=== PATIENT | female | born 1940 | race Caucasian/White ===

== ENCOUNTER 2016-06-17 12:03 | Emergency (ER) | payer MEDICARE, BC ==
[~2016-06-17] VITALS: Ht 167.6 cm; Wt 75.0 kg
[2016-06-17 12:05] VITALS: PULSE 100; RESP 16; TEMP 98.1; O2SAT 100
[2016-06-17] MEDS ORDERED: ALPR.25 PO (12:22)
[2016-06-17] MEDS ORDERED: METO25TA6 PO (12:22)
[2016-06-17] MEDS ORDERED: LISI10TA3 PO (12:22)
[2016-06-17 12:27] VITALS: BP 184/76; PULSE 86; RESP 16; O2SAT 99
[2016-06-17] MEDS ORDERED: SODIUM CHLORID 0.9% 500 ML INJ 500 ML IV ONE (12:45)
[2016-06-17] MEDS ORDERED: SODIUM CHLORIDE 0.9% FLUSH 10 ML FLUSH IVF PRN (12:45)
[2016-06-17 12:51] VITALS: RESP 16; O2SAT 99
[2016-06-17 12:52] LABS: AUTOMATED NEUTROPHIL # 4.1 TH/MM3 (1.8-7.7); BASOPHIL # 0.4 TH/MM3 (0-0.2); BASOPHIL % 4.6 % (0.0-2.0); EOSINOPHIL # 0.1 TH/MM3 (0-0.4); EOSINOPHIL % 1.1 % (0.0-4.0); HEMATOCRIT 36.3 % (35.0-46.0); HEMO FLAGS DIFF FINAL; LYMPH % 31.2 % (9.0-44.0); LYMPHOCYTE # 2.4 TH/MM3 (1.0-4.8); MEAN CORPUSCULAR HEMOGLOBIN 31.2 PG (27.0-34.0); MEAN CORPUSCULAR HGB CONC 34.3 % (32.0-36.0); MONO % 8.5 % (0.0-8.0); NEUT % 54.6 % (16.0-70.0); PLATELET COUNT 240 TH/MM3 (150-450); RED BLOOD COUNT 3.99 MIL/MM3 (4.00-5.30); RED CELL DISTRIBUTION WIDTH 12.4 % (11.6-17.2); WHITE BLOOD COUNT 7.6 TH/MM3 (4.0-11.0)
[2016-06-17 12:55] LABS: BLOOD, URINE TRACE (NEG); GLUCOSE,URINE NEG (NEG); KETONE, URINE NEG (NEG); NITRITE,URINE NEG (NEG)
--- NOTE | 2016-06-17 12:57 | PD ---
HPI Chief Complaint: Dizziness Time Seen by Provider: 12:23 Travel History International Travel<30 days: No Contact w/Intl Traveler<30days: No Traveled to known affect area: No History of Present Illness HPI Patient is a 75-year-old female with history of hypertension, anxiety, since the emergency room for evaluation of "shakiness and nausea." Patient reports that over the past 2 weeks, she has not been feeling well, reports that she has been feeling "shaky inside and has been feeling nauseous." Patient reports that she went to her primary care doctor's office on Monday as she thought that she had a urinary tract infection, reports that the pain a urine culture and did not send a UA. Reports that she was not sent home with any antibiotics and patient traveled to [place] for vacation. Patient reports that last night around 11 PM, she felt her "inside of my body jerking" reports "I can't describe it but I had to take a 0.5mg of xanax and then I was able to go to bed. " Patient reports that she woke up at 2:30am with similar symptoms. Reports "I just feel shaky inside and I just needed to be checked." Reports that she has been having back pain and thats why she takes tramadol. Reports "It all started when I got here and slept on this new bed." Denies fever/chills. Denies headache/dizzyness. Denies chest pain/sob. Denies abdominal pain. PFSH Past Medical History Diminished Hearing: No Hypertension: Yes Tetanus Vaccination: Unknown ?: Not Past Surgical History Hysterectomy: Yes Social History Alcohol Use: No Tobacco Use: No Substance Use: No Allergies-Medications (Allergen,Severity, Reaction): Coded Allergies: No Known Allergies (Unverified , 06/17/16) Reported Meds & Prescriptions Reported Meds & Active Scripts Active Macrobid (Nitrofurantoin Monoh/Nitrofur Macro) 100 Mg Cap 100 Mg PO BID 10 Days Reported Xanax (Alprazolam) 0.25 Mg Tab 0.25 Mg PO Q8H PRN Metoprolol Succinate ER 24 HR (Metoprolol Succinate) 25 Mg Tab 12.5 Mg PO DAILY Lisinopril 10 Mg Tab 10 Mg PO DAILY Review of Systems General / Constitutional: No: Fever Eyes: No: Visual changes HENT: No: Headaches Cardiovascular: Positive: Tachycardia, No: Chest Pain or Discomfort Respiratory: No: Shortness of Breath Gastrointestinal: No: Abdominal Pain Genitourinary: No: Dysuria Musculoskeletal: No: Pain Skin: No Rash Neurologic: No: Weakness Psychiatric: No: Depression Endocrine: No: Polydipsia Hematologic/Lymphatic: No: Easy Bruising Physical Exam Narrative GENERAL: NAD, nontoxic SKIN: Focused skin assessment warm/dry. HEAD: Atraumatic. Normocephalic. EYES: Pupils equal and round. No scleral icterus. No injection or drainage. ENT: No nasal bleeding or discharge. Mucous membranes pink and moist. NECK: Trachea midline. No JVD. CARDIOVASCULAR: Regular rate and rhythm. No murmur appreciated. RESPIRATORY: No accessory muscle use. Clear to auscultation. Breath sounds equal bilaterally. GASTROINTESTINAL: Abdomen soft, non-tender, nondistended. Hepatic and splenic margins not palpable. MUSCULOSKELETAL: No obvious deformities. No clubbing. No cyanosis. No edema. NEUROLOGICAL: Awake and alert. No obvious cranial nerve deficits. Motor grossly within normal limits. Normal speech. PSYCHIATRIC: Patient anxious on exam Data Data Last Documented VS Vital Signs Date Time Temp Pulse Resp B/P Pulse Ox O2 Delivery O2 Flow Rate FiO2 06/17/16 13:48 77 16 173/66 99 Room Air 06/17/16 12:05 98.1 Orders Ckmb (Isoenzyme) Profile (06/17/16 12:43) Complete Blood Count With Diff (06/17/16 12:43) Comprehensive Metabolic Panel (06/17/16 12:43) Magnesium (Mg) (06/17/16 12:43) Prothrombin Time / Inr (Pt) (06/17/16 12:43) Act Partial Throm Time (Ptt) (06/17/16 12:43) Troponin I (06/17/16 12:43) Chest, Single Ap (06/17/16 12:43) Ecg Monitoring (06/17/16 12:43) Oximetry (06/17/16 12:43) Sodium Chloride 0.9% Flush (Ns Flush) (06/17/16 12:45) Sodium Chlorid 0.9% 500 Ml Inj (Ns 500 M (06/17/16 12:45) Urinalysis - C+S If Indicated (06/17/16 12:43) Urine Culture (06/17/16 12:40) CKMB (06/17/16 12:40) CKMB% (06/17/16 12:40) Ceftriaxone Inj (Rocephin Inj) (06/17/16 13:45) Labs Laboratory Tests Test 06/17/16 12:40 White Blood Count 7.6 TH/MM3 Red Blood Count 3.99 MIL/MM3 Hemoglobin 12.5 GM/DL Hematocrit 36.3 % Mean Corpuscular Volume 91.0 FL Mean Corpuscular Hemoglobin 31.2 PG Mean Corpuscular Hemoglobin 34.3 % Concent Red Cell Distribution Width 12.4 % Platelet Count 240 TH/MM3 Mean Platelet Volume 8.7 FL Neutrophils (%) (Auto) 54.6 % Lymphocytes (%) (Auto) 31.2 % Monocytes (%) (Auto) 8.5 % Eosinophils (%) (Auto) 1.1 % Basophils (%) (Auto) 4.6 % Neutrophils # (Auto) 4.1 TH/MM3 Lymphocytes # (Auto) 2.4 TH/MM3 Monocytes # (Auto) 0.6 TH/MM3 Eosinophils # (Auto) 0.1 TH/MM3 Basophils # (Auto) 0.4 TH/MM3 CBC Comment DIFF FINAL Differential Comment Prothrombin Time 10.0 SEC Prothromb Time International 0.9 RATIO Ratio Activated Partial 22.2 SEC Thromboplast Time Urine Collection Type CLEAN CATCH Urine Color YELLOW Urine Turbidity SLIGHT Urine pH 6.0 Urine Specific [place] 1.012 Urine Protein NEG mg/dL Urine Glucose (UA) NEG mg/dL Urine Ketones NEG mg/dL Urine Occult Blood TRACE Urine Nitrite NEG Urine Bilirubin NEG Urine Leukocyte Esterase LARGE Urine RBC 4-9 /hpf Urine WBC 25-49 /hpf Urine WBC Clumps MOD Urine Squamous Epithelial > 8 /hpf Cells Urine Renal Epithelial Cells 6-8 /hpf Urine Bacteria FEW /hpf Microscopic Urinalysis Comment CULTURE INDICATED Urine Collection Time 12:40 Sodium Level 142 MEQ/L Potassium Level 3.6 MEQ/L Chloride Level 105 MEQ/L Carbon Dioxide Level 29.4 MEQ/L Anion Gap 8 MEQ/L Blood Urea Nitrogen 13 MG/DL Creatinine 1.10 MG/DL Estimat Glomerular Filtration 48 ML/MIN Rate Random Glucose 84 MG/DL Calcium Level 8.5 MG/DL Magnesium Level 2.3 MG/DL Total Bilirubin 0.3 MG/DL Aspartate Amino Transf 18 U/L (AST/SGOT) Alanine Aminotransferase 21 U/L (ALT/SGPT) Alkaline Phosphatase 95 U/L Total Creatine Kinase 108 U/L Creatine Kinase MB 1.6 NG/ML Troponin I LESS THAN 0.02 NG/ML Total Protein 7.4 GM/DL Albumin 3.6 GM/DL MDM Medical Decision Making Medical Screen Exam Complete: Yes Emergency Medical Condition: Yes Interpretation(s) EKG at 1218: NSR at 87bpm, qt/qtc: 356/403, nonspecific st - t wave changes Vital Signs Date Time Temp Pulse Resp B/P Pulse Ox O2 Delivery O2 Flow Rate FiO2 06/17/16 12:27 86 16 184/76 99 Room Air 06/17/16 12:11 16 100 Room Air 06/17/16 12:05 98.1 100 16 100 Differential Diagnosis Dehydration, electrolyte abnormality, ACS, UTI, anxiety reaction Narrative Course Patient is a 75-year-old female who presents to emergency room for evaluation of "shakiness inside" has been intermittent for the past 2 weeks. Patient believes that she may have a urinary tract infection as she has had similar symptoms in the past. Patient did follow-up with a primary care doctor on Monday and a urine culture was sent but a UA was not obtained. She is not on any antibiotics this time. Patient overall nontoxic on evaluation, patient is very anxious on exam. Discussed with her need to obtain lab work, EKG, will check UA. Patient was placed on a graphic manager upon arrival to emergency room, will continue to monitor patient. Laboratory Tests Test 06/17/16 12:40 White Blood Count 7.6 TH/MM3 (4.0-11.0) Red Blood Count 3.99 MIL/MM3 (4.00-5.30) Hemoglobin 12.5 GM/DL (11.6-15.3) Hematocrit 36.3 % (35.0-46.0) Mean Corpuscular Volume 91.0 FL (80.0-100.0) Mean Corpuscular Hemoglobin 31.2 PG (27.0-34.0) Mean Corpuscular Hemoglobin 34.3 % Concent (32.0-36.0) Red Cell Distribution Width 12.4 % (11.6-17.2) Platelet Count 240 TH/MM3 (150-450) Mean Platelet Volume 8.7 FL (7.0-11.0) Neutrophils (%) (Auto) 54.6 % (16.0-70.0) Lymphocytes (%) (Auto) 31.2 % (9.0-44.0) Monocytes (%) (Auto) 8.5 % (0.0-8.0) Eosinophils (%) (Auto) 1.1 % (0.0-4.0) Basophils (%) (Auto) 4.6 % (0.0-2.0) Neutrophils # (Auto) 4.1 TH/MM3 (1.8-7.7) Lymphocytes # (Auto) 2.4 TH/MM3 (1.0-4.8) Monocytes # (Auto) 0.6 TH/MM3 (0-0.9) Eosinophils # (Auto) 0.1 TH/MM3 (0-0.4) Basophils # (Auto) 0.4 TH/MM3 (0-0.2) CBC Comment DIFF FINAL Differential Comment Prothrombin Time 10.0 SEC (9.8-11.6) Prothromb Time International 0.9 RATIO Ratio Activated Partial 22.2 SEC Thromboplast Time (24.3-30.1) Urine Collection Type CLEAN CATCH Urine Color YELLOW (YELLW/STRAW) Urine Turbidity SLIGHT (CLEAR) Urine pH 6.0 (5.0-8.5) Urine Specific [place] 1.012 (1.002-1.035) Urine Protein NEG mg/dL (NEG-TRACE) Urine Glucose (UA) NEG mg/dL (NEG) Urine Ketones NEG mg/dL (NEG) Urine Occult Blood TRACE (NEG) Urine Nitrite NEG (NEG) Urine Bilirubin NEG (NEG) Urine Leukocyte Esterase LARGE (NEG) Urine RBC 4-9 /hpf (0-3) Urine WBC 25-49 /hpf (0-5) Urine WBC Clumps MOD (NONE) Urine Squamous Epithelial > 8 /hpf (0-5) Cells Urine Renal Epithelial Cells 6-8 /hpf (NONE) Urine Bacteria FEW /hpf (NONE) Microscopic Urinalysis Comment CULTURE INDICATED Urine Collection Time 12:40 Sodium Level 142 MEQ/L (136-145) Potassium Level 3.6 MEQ/L (3.5-5.1) Chloride Level 105 MEQ/L (98-107) Carbon Dioxide Level 29.4 MEQ/L (21.0-32.0) Anion Gap 8 MEQ/L (5-15) Blood Urea Nitrogen 13 MG/DL (7-18) Creatinine 1.10 MG/DL (0.50-1.00) Estimat Glomerular Filtration 48 ML/MIN (>89) Rate Random Glucose 84 MG/DL (74-106) Calcium Level 8.5 MG/DL (8.5-10.1) Magnesium Level 2.3 MG/DL (1.5-2.5) Total Bilirubin 0.3 MG/DL (0.2-1.0) Aspartate Amino Transf 18 U/L (15-37) (AST/SGOT) Alanine Aminotransferase 21 U/L (10-53) (ALT/SGPT) Alkaline Phosphatase 95 U/L (45-117) Total Creatine Kinase 108 U/L (26-192) Creatine Kinase MB 1.6 NG/ML (0.5-3.6) Troponin I LESS THAN 0.02 NG/ML (0.02-0.05) Total Protein 7.4 GM/DL (6.4-8.2) Albumin 3.6 GM/DL (3.4-5.0) Patient reevaluated, patient reports that she is feeling much better at this time. I reviewed all labs and all studies in detail patient. Patient with a UTI. Patient was given IV Rocephin while emergency room, urine culture sent. Plan to send patient home on a prescription with Macrobid. Patient will follow- up with cultures from today. Signs and symptoms of when to return to the emergency room was reviewed patient in detail. Diagnosis Primary Impression: Cystitis Additional Impression: Dehydration Patient Instructions: General Instructions Additional Instructions: Please follow-up with your primary care doctor in 2-3 days Please follow up with cultures today Take all antibiotics as prescribed Return to emergency room symptoms worsen or progress Return to the emergency room as needed Med/Other Pt SpecificInfo: Prescription(s) given Scripts Nitrofurantoin Monohydrate Macrocrystals (Macrobid)100 Mg [id number] Mg PO BID 10 Days Ref 0 Prov:Rhea Chawla DO 06/17/16 Disposition: 01 DISCHARGE HOME Condition: Stable Rhea Chawla DO June 17, 2016 12:57
[2016-06-17 13:05] LABS: METHOD OF COLLECTION CLEAN CATCH; URINE COLOR YELLOW (YELLW/STRAW)
[2016-06-17 13:06] LABS: BACTERIA, URINE FEW /hpf; COMMENT (UR) CULTURE INDICATED; CULTURE IF INDICATED CULTURE INDICATED; SQUAMOUS EPITHELIAL CELL URINE > 8 /hpf (0-5)
[2016-06-17 13:08] LABS: CHLORIDE 105 MEQ/L (98-107); POTASSIUM 3.6 MEQ/L (3.5-5.1); SODIUM (NA) 142 MEQ/L (136-145)
[2016-06-17 13:12] LABS: ANION GAP 8 MEQ/L (5-15); BICARBONATE 29.4 MEQ/L (21.0-32.0); BLOOD UREA NITROGEN 13 MG/DL (7-18); MAGNESIUM 2.3 MG/DL (1.5-2.5)
[2016-06-17 13:15] LABS: ALT (GPT) 21 U/L (10-53); AST (GOT) 18 U/L (15-37); GLOMERULAR FILTRATION RATE 48 ML/MIN (>89)
[2016-06-17 13:17] LABS: TOTAL BILIRUBIN ADULT 0.3 MG/DL (0.2-1.0)
[2016-06-17 13:18] LABS: ALKALINE PHOSPHATASE 95 U/L (45-117); CREATINE KINASE 108 U/L (26-192)
[2016-06-17 13:27] LABS: APTT (PATIENT) 22.2 SEC (24.3-30.1); INTERNATIONAL NORMALIZED RATIO 0.9 RATIO
--- NOTE | 2016-06-17 13:28 | RADHPO ---
EXAM DATE/TIME: 06/17/2016 13:02 [facility] COMPARISON: No previous studies available for comparison. INDICATIONS : Nausea and shakiness. MEDICAL HISTORY : None. SURGICAL HISTORY : None. ENCOUNTER: Initial ACUITY: 1 day PAIN SCORE: 2/10 LOCATION: Bilateral chest FINDINGS: A single view of the chest demonstrates the lungs to be symmetrically aerated without evidence of mas s, infiltrate or effusion. The cardiomediastinal contours are unremarkable. Osseous structures are intact. CONCLUSION: 1. No acute cardiopulmonary findings. Garret Rolon MD on June 17, 2016 at 13:25 Board Certified Radiologist. This report was verified electronically.
[2016-06-17 13:30] LABS: CKMB 1.6 NG/ML (0.5-3.6)
[2016-06-17] MEDS ORDERED: cefTRIAXone INJ 1,000 MG in SODIUM CHLORIDE 0.9% INJ 100 ML IV ONE (13:45)
[2016-06-17 13:48] VITALS: BP 173/66; PULSE 77; RESP 16; O2SAT 99
[2016-06-17] MEDS ORDERED: MACR100C2 PO (14:08)
--- NOTE | 2016-06-18 22:01 | EKG ---
Date Performed: 06/17/2016 Time Performed: 12:18:02 PTAGE: 75 years EKG: Sinus rhythm Lateral ST-T changes are nonspecific Borderline ECG NO PREVIOUS TRACING DOCTOR: Donna Levi Interpretating Date/Time 06/18/2016 21:53:35
== END 2016-06-17 14:56 | disposition home or self-care (01) ==
LOC: PHED 12:03
DX: N30.90 Cystitis, unspecified without hematuria (principal); E86.0 Dehydration; R94.31 Abnormal electrocardiogram [ECG] [EKG]; I10 Essential (primary) hypertension; R11.0 Nausea; R00.0 Tachycardia, unspecified
CPT/HCPCS: 71010; 80053; 81001; 82550; 82552; 83735; 84484; 85025; 85610; 85730; 87086; 93005; 96361; 96365; 99284; J0696; J7040

== ENCOUNTER 2016-06-27 20:38 | Observation (INO) | payer MEDICARE, BC ==
[~2016-06-27] VITALS: Ht 167.6 cm; Wt 73.5 kg
[~2016-06-27 20:38] MED LIST: ALPR.25 PO; LISI10TA3 PO; MACR100C2 PO; METO25TA6 PO
[2016-06-27 20:45] VITALS: BP 198/98; PULSE 107; RESP 18; TEMP 98; O2SAT 100
[2016-06-27] MEDS ORDERED: PREV30CA11 PO (21:45)
[2016-06-27] MEDS ORDERED: PRAV40TA2 PO (21:45)
[2016-06-27] MEDS ORDERED: VITA100064 PO (21:48)
[2016-06-27] MEDS ORDERED: TRAM50TA PO (21:48)
[2016-06-27] MEDS ORDERED: FLUT1SPR5 EACH NARE (21:48)
[2016-06-27] MEDS ORDERED: FEXO15TA PO (21:48)
[2016-06-27] MEDS ORDERED: ASPIRIN 81 MG CHEW TAB PO ONE (22:00)
[2016-06-27] MEDS ORDERED: NITROGLYCERIN 0.4 MG SL 25 TABS/BTL SL ONE (22:00)
[2016-06-27] MEDS ORDERED: SODIUM CHLORIDE 0.9% FLUSH 10 ML FLUSH IVF PRN (22:00)
--- NOTE | 2016-06-27 22:05 | PD ---
HPI Chief Complaint: Back/ Neck Pain or Injury Time Seen by Provider: 21:40 Travel History International Travel<30 days: No Contact w/Intl Traveler<30days: No Traveled to known affect area: No History of Present Illness HPI 75-year-old female with history of hypertension, hypercholesterolemia, here for evaluation of mid scapular pain. The patient reports that she was seen in the emergency department about 10 days ago and had similar pain, however states she was diagnosed with a UTI. Pain had resolved, however has returned today. She denies trauma. Pain is constant, described as an ache, nonradiating, no modifying factors. No dyspnea. No hemoptysis. No known history of cardiopulmonary disease. No history of DVT or PE. Family history of cardiac disease in her mother who had CABG at the age of 40. The patient is a lifetime nonsmoker. She has had a dry cough which she blames on allergies. PFSH Past Medical History Anxiety: Yes High Cholesterol: Yes Diminished Hearing: No GERD: Yes Hypertension: Yes Tetanus Vaccination: > 5 Years Influenza Vaccination: Yes ?: Not Menopausal: Yes : 2 Para: 2 Tubal Ligation: Yes Past Surgical History Eye Surgery: Yes (BILATERAL CATARACT: 2016) Hysterectomy: Yes Social History Alcohol Use: No Tobacco Use: No Substance Use: No Allergies-Medications (Allergen,Severity, Reaction): Coded Allergies: No Known Allergies (Unverified , 06/27/16) Reported Meds & Prescriptions Reported Meds & Active Scripts Active Macrobid (Nitrofurantoin Monoh/Nitrofur Macro) 100 Mg Cap 100 Mg PO BID 10 Days Reported Flonase Nasal [place] (Fluticasone Nasal [place]) 50 Mcg/Act [place] 50 Mcg EACH NARE DAILY Rayna Allergy (Fexofenadine HCl) 180 Mg Tab 180 Mg PO DAILY Vitamin D (Cholecalciferol) 1,000 Unit Tab 1,000 Units PO DAILY Tramadol (Tramadol HCl) 50 Mg Tab 50 Mg PO Q6H PRN Pravastatin 40 Mg Tab 40 Mg PO HS Prevacid (Lansoprazole) 30 Mg Capdr 30 Mg PO HS Xanax (Alprazolam) 0.25 Mg Tab 0.25 Mg PO Q8H PRN Metoprolol Succinate ER 24 HR (Metoprolol Succinate) 25 Mg Tab 12.5 Mg PO HS Lisinopril 10 Mg Tab 10 Mg PO DAILY Review of Systems Except as stated in HPI: all other systems reviewed are Neg Physical Exam Narrative GENERAL: Well-developed, well-nourished, comfortable, no acute distress. SKIN: Focused skin assessment warm/dry. No rash. HEAD: Atraumatic. Normocephalic. EYES: Pupils equal and round. No scleral icterus. No injection or drainage. ENT: No nasal bleeding or discharge. Mucous membranes pink and moist. NECK: Trachea midline. No JVD. CARDIOVASCULAR: Regular rate and rhythm. Distal pulses brisk and equal bilaterally. RESPIRATORY: No accessory muscle use. Clear to auscultation. Breath sounds equal bilaterally. GASTROINTESTINAL: Abdomen soft, non-tender, nondistended. MUSCULOSKELETAL: No obvious deformities. No clubbing. No cyanosis. No edema. No midline vertebral step-off or tenderness. NEUROLOGICAL: Awake and alert. No obvious cranial nerve deficits. Motor grossly within normal limits. Normal speech. PSYCHIATRIC: Appropriate mood and affect; insight and judgment normal. Data Data Last Documented VS Vital Signs Date Time Temp Pulse Resp B/P Pulse Ox O2 Delivery O2 Flow Rate FiO2 06/27/16 23:54 84 16 170/77 97 Room Air 06/27/16 20:45 98.0 Orders Electrocardiogram (06/27/16 21:59) Basic Metabolic Panel (Bmp) (06/27/16 21:59) Ckmb (Isoenzyme) Profile (06/27/16 21:59) Complete Blood Count With Diff (06/27/16 21:59) D-Dimer (06/27/16 21:59) Magnesium (Mg) (06/27/16 21:59) Prothrombin Time / Inr (Pt) (06/27/16 21:59) Act Partial Throm Time (Ptt) (06/27/16 21:59) Troponin I (06/27/16 21:59) Chest, Single Ap (06/27/16 21:59) Ecg Monitoring (06/27/16 21:59) Bilateral Bp Monitoring (06/27/16 21:59) Iv Access Insert/Monitor (06/27/16 21:59) Oximetry (06/27/16 21:59) Aspirin Chew (Aspirin Chew) (06/27/16 22:00) Sodium Chloride 0.9% Flush (Ns Flush) (06/27/16 22:00) Nitroglycerin Sl (Nitrostat Sl) (06/27/16 22:00) Urinalysis - C+S If Indicated (06/27/16 22:02) CKMB (06/27/16 22:15) CKMB% (06/27/16 22:15) Ct Pulmonary Angiogram (06/27/16 23:18) Iohexol 350 Inj (Omnipaque 350 Inj) (06/27/16 23:57) Nitroglycerin Sl (Nitrostat Sl) (06/28/16 00:30) Labs Laboratory Tests Test 06/27/16 06/27/16 21:40 22:15 Urine Color YELLOW Urine Turbidity CLEAR Urine pH 6.0 Urine Specific [place] 1.005 Urine Protein NEG mg/dL Urine Glucose (UA) NEG mg/dL Urine Ketones NEG mg/dL Urine Occult Blood NEG Urine Nitrite NEG Urine Bilirubin NEG Urine Leukocyte Esterase SMALL Urine WBC 3-5 /hpf Urine Squamous Epithelial 0-5 /hpf Cells Microscopic Urinalysis Comment CULT NOT INDICATED White Blood Count 9.1 TH/MM3 Red Blood Count 3.80 MIL/MM3 Hemoglobin 11.6 GM/DL Hematocrit 35.2 % Mean Corpuscular Volume 92.7 FL Mean Corpuscular Hemoglobin 30.5 PG Mean Corpuscular Hemoglobin 32.9 % Concent Red Cell Distribution Width 12.4 % Platelet Count 221 TH/MM3 Mean Platelet Volume 8.5 FL Neutrophils (%) (Auto) 73.7 % Lymphocytes (%) (Auto) 17.5 % Monocytes (%) (Auto) 7.4 % Eosinophils (%) (Auto) 1.0 % Basophils (%) (Auto) 0.4 % Neutrophils # (Auto) 6.8 TH/MM3 Lymphocytes # (Auto) 1.6 TH/MM3 Monocytes # (Auto) 0.7 TH/MM3 Eosinophils # (Auto) 0.1 TH/MM3 Basophils # (Auto) 0.0 TH/MM3 CBC Comment DIFF FINAL Differential Comment Prothrombin Time 10.0 SEC Prothromb Time International 0.9 RATIO Ratio Activated Partial 24.7 SEC Thromboplast Time D-Dimer Quantitative (PE/DVT) 0.61 MG/L FEU Sodium Level 139 MEQ/L Potassium Level 3.4 MEQ/L Chloride Level 103 MEQ/L Carbon Dioxide Level 27.3 MEQ/L Anion Gap 9 MEQ/L Blood Urea Nitrogen 11 MG/DL Creatinine 0.97 MG/DL Estimat Glomerular Filtration 56 ML/MIN Rate Random Glucose 124 MG/DL Calcium Level 8.5 MG/DL Magnesium Level 2.2 MG/DL Total Creatine Kinase 106 U/L Creatine Kinase MB 1.9 NG/ML Troponin I LESS THAN 0.02 NG/ML MDM Medical Decision Making Medical Screen Exam Complete: Yes Emergency Medical Condition: Yes Medical Record Reviewed: Yes Differential Diagnosis ACS, dissection, PE, pneumothorax, pericarditis, pneumonia Narrative Course Vital signs reviewed. CBC is unremarkable. BMP is unremarkable. Cardiac enzymes are negative. UA is suggestive of UTI. Chest x-ray: No acute disease. CT pulmonary angiogram: CONCLUSION: 1. No evidence of pulmonary embolism. 2. Mild atherosclerotic change in the aorta with no evidence of dissection. Patient was made aware of all findings. She was given a full aspirin. She states that her pain resolved after sublingual nitroglycerin. Given her risk factors of history of hypertension, hyperlipidemia, family history of CAD, I believe the patient is a good candidate for further cardiac evaluation in the chest pain center. She is amenable to this plan. Case discussed with hospitalist Dr. Heck. The patient will be admitted to her service. Diagnosis Primary Impression: Chest pain Qualified Code: R07.9 - Chest pain, unspecified type Admitting Information Admitting Physician Requests: Prudencio Barfield MD June 27, 2016 22:05
[2016-06-27 22:35] VITALS: BP_SYST 166; BP_SYST 170; BP_DIAS 73; BP_DIAS 75; PULSE 90; O2SAT 99
--- NOTE | 2016-06-27 22:40 | RADHPO ---
EXAM DATE/TIME: 06/27/2016 22:32 [facility] COMPARISON: CHEST SINGLE AP, June 17, 2016, 13:02. INDICATIONS : Back pain between shoulder blades unrelieved with medication. MEDICAL HISTORY : None. SURGICAL HISTORY : None. ENCOUNTER: Initial ACUITY: 3 days PAIN SCORE: 9/10 LOCATION: Bilateral upper back FINDINGS: A single view of the chest demonstrates the lungs to be symmetrically aerated without evidence of mas s, infiltrate or effusion. The cardiomediastinal contours are unremarkable. Osseous structures are intact. CONCLUSION: No acute disease. Chon Astudillo MD on June 27, 2016 at 22:38 Board Certified Radiologist. This report was verified electronically.
[2016-06-27 22:41] LABS: AUTOMATED NEUTROPHIL # 6.8 TH/MM3 (1.8-7.7); BASOPHIL % 0.4 % (0.0-2.0); EOSINOPHIL # 0.1 TH/MM3 (0-0.4); HEMATOCRIT 35.2 % (35.0-46.0); HEMO FLAGS DIFF FINAL; LYMPH % 17.5 % (9.0-44.0); LYMPHOCYTE # 1.6 TH/MM3 (1.0-4.8); MEAN CELL VOLUME 92.7 FL (80.0-100.0); MEAN CORPUSCULAR HEMOGLOBIN 30.5 PG (27.0-34.0); MEAN CORPUSCULAR HGB CONC 32.9 % (32.0-36.0); MONO % 7.4 % (0.0-8.0); NEUT % 73.7 % (16.0-70.0); PLATELET COUNT 221 TH/MM3 (150-450); RED CELL DISTRIBUTION WIDTH 12.4 % (11.6-17.2); WHITE BLOOD COUNT 9.1 TH/MM3 (4.0-11.0)
[2016-06-27 22:43] LABS: BLOOD, URINE NEG (NEG); GLUCOSE,URINE NEG (NEG); KETONE, URINE NEG (NEG); NITRITE,URINE NEG (NEG)
[2016-06-27 22:49] LABS: CHLORIDE 103 MEQ/L (98-107); POTASSIUM 3.4 MEQ/L (3.5-5.1); SODIUM (NA) 139 MEQ/L (136-145)
[2016-06-27 22:49] LABS: URINE COLOR YELLOW (YELLW/STRAW)
[2016-06-27 22:51] LABS: SQUAMOUS EPITHELIAL CELL URINE 0-5 /hpf (0-5)
[2016-06-27 22:52] LABS: ANION GAP 9 MEQ/L (5-15); BICARBONATE 27.3 MEQ/L (21.0-32.0); BLOOD UREA NITROGEN 11 MG/DL (7-18); MAGNESIUM 2.2 MG/DL (1.5-2.5)
[2016-06-27 22:53] LABS: COMMENT (UR) CULT NOT INDICATED; CULTURE IF INDICATED CULT NOT INDICATED
[2016-06-27 22:56] LABS: GLOMERULAR FILTRATION RATE 56 ML/MIN (>89)
[2016-06-27 22:59] LABS: CREATINE KINASE 106 U/L (26-192)
[2016-06-27 23:00] LABS: APTT (PATIENT) 24.7 SEC (24.3-30.1); INTERNATIONAL NORMALIZED RATIO 0.9 RATIO
[2016-06-27 23:11] LABS: CKMB 1.9 NG/ML (0.5-3.6)
[2016-06-27 23:54] VITALS: BP 170/77; PULSE 84; RESP 16; O2SAT 97
[2016-06-27] MEDS ORDERED: IOHEXOL 350 MG/ML 10 ML VIAL (for RAD DIAG) IV ONE (23:57)
[2016-06-28] VITALS (13 sets, daily range): BP systolic 148–169; BP diastolic 62–84; PULSE 68–94; RESP 16–20; TEMP 97.3–98.7; O2SAT 95–100
--- NOTE | 2016-06-28 00:08 | RADHPO ---
EXAM DATE/TIME: 06/27/2016 23:33 [place] Corrected on: June 28, 2016; [facility] COMPARISON: CHEST SINGLE AP, June 27, 2016, 22:32. INDICATIONS : Back pain. Evaluate for embolism. IV CONTRAST: 100 cc Omnipaque 350 (iohexol) IV RADIATION DOSE: 12.32 CTDIvol (mGy) MEDICAL HISTORY : Hypertension. SURGICAL HISTORY : None. ENCOUNTER: Initial ACUITY: 1 day PAIN SCALE: 3/10 LOCATION: Upper back TECHNIQUE: Volumetric scanning of the chest was performed using a pulmonary embolism protocol MIP images were re constructed. Using automated exposure control and adjustment of the mA and/or kV according to patien t size, radiation dose was kept as low as reasonably achievable to obtain optimal diagnostic quality images. FINDINGS: PULMONARY ARTERIES: No filling defects are seen in the pulmonary arteries through the segmental level. LUNGS: There is no consolidation or pneumothorax . No concerning pulmonary nodule is visualized. There is c alcified minimal pneumonia right lower lobe. PLEURAE: There is no pleural thickening or pleural effusion. MEDIASTINUM: There is good visualization of the great vessels of the middle mediastinum. No evidence of mediastin al or hilar adenopathy/mass. There is mild atherosclerotic change in the aorta with no evidence of di ssection. Tracheal calcifications are present. MUSCULOSKELETAL: Within normal limits for patient age. MISCELLANEOUS: The visualized upper abdominal organs demonstrate no acute abnormality. CONCLUSION: 1. No evidence of pulmonary embolism. 2. Mild atherosclerotic change in the aorta with no evidence of dissection. Rajesh Bailon MD on June 28, 2016 at 0:05 Board Certified Radiologist. This report was verified electronically. Rajesh Bailon MD on June 28, 2016 at 0:13 Board Certified Radiologist. This report was verified electronically.
[2016-06-28] MEDS ORDERED: SODIUM CHLORIDE 0.9% FLUSH 10 ML FLUSH IV FLUSH PRN (00:30)
[2016-06-28] MEDS ORDERED: NITROGLYCERIN 0.4 MG SL 25 TABS/BTL SL ONE (00:30)
[2016-06-28 02:00] LABS: CREATINE KINASE 94 U/L (26-192)
[2016-06-28 06:27] LABS: CREATINE KINASE 82 U/L (26-192)
[2016-06-28] MEDS ORDERED: SODIUM CHLORIDE 0.9% FLUSH 10 ML FLUSH SCH (09:00)
--- NOTE | 2016-06-28 11:18 | HHI.HP ---
HPI Service [facility] Primary [facility] Physician Non-Staff Admission Diagnosis chest pain Diagnoses: (1) Pain, upper back Diagnosis: Principal (2) Hypertensive urgency Diagnosis: Principal (3) Hypokalemia Diagnosis: Principal Chief Complaint: "pain between the shoulder blades" Travel History International Travel<30 Days: No Contact w/Intl Traveler <30 Da: No Traveled to Known Affected Are: No History of Present Illness 75-year-old female with history of hypertension, hyperlipidemia, GERD , anxiety presents with complaint of pain between her shoulder blades. Patient states she had some of this pain 1.5 weeks ago over the left shoulder blade but the pain became worse yesterday. She denies any relief with pain medications. States her pain at worst is a 10/10. She currently describes the pain as a pressure in her back. She denies any chest pain. She denies pain being worse with movement or breathing. She does admit to radiation of pain to her neck. Denies any radiation of pain to the arms. She did have some nausea but denies any vomiting. Denies any dizziness or lightheadedness, syncope, diaphoresis, or shortness of breath. Denies any abdominal pain, diarrhea, or constipation. Patient denies any dysuria but does admit to feeling of pressure over her lower abdomen. She was recently seen in the ED on 06/17/16 and was prescribed Macrobid for UTI. Patient additionally states she hasn't been able to eat much for the past 2 months but denies any night sweats or weight loss. She denies any personal history of [place] or CVA. Had a stress test 2-3 years ago in [place], [place]. Review of Systems Except as stated in HPI: all other systems reviewed are Neg Past Family Social History Past Medical History Hyperlipidemia Hypertension GERD Anxiety Past Surgical History Hysterectomy Bilateral cataract surgery Reported Medications Active Macrobid (Nitrofurantoin Monoh/Nitrofur Macro) 100 Mg Cap 100 Mg PO BID 10 Days Reported Flonase Nasal Bryson (Fluticasone Nasal Bryson) 50 Mcg/Act Bryson 50 Mcg EACH NARE DAILY Rayna Allergy (Fexofenadine HCl) 180 Mg Tab 180 Mg PO DAILY Vitamin D (Cholecalciferol) 1,000 Unit Tab 1,000 Units PO DAILY Tramadol (Tramadol HCl) 50 Mg Tab 50 Mg PO Q6H PRN Pravastatin 40 Mg Tab 40 Mg PO HS Prevacid (Lansoprazole) 30 Mg Capdr 30 Mg PO HS Xanax (Alprazolam) 0.25 Mg Tab 0.25 Mg PO Q8H PRN Metoprolol Succinate ER 24 HR (Metoprolol Succinate) 25 Mg Tab 12.5 Mg PO HS Lisinopril 10 Mg Tab 10 Mg PO DAILY Allergies: Coded Allergies: No Known Allergies (Unverified , 06/27/16) Family History Mother: CABG, of [place]. Social History Denies any history of cigarette smoking. Denies alcohol use. Denies illicit drug use. Physical Exam Vital Signs Vital Signs Date Time Temp Pulse Resp B/P Pulse Ox O2 Delivery O2 Flow Rate FiO2 06/28/16 08:03 78 06/28/16 08:00 97.3 76 20 150/81 98 06/28/16 04:00 97.9 80 20 161/84 100 06/28/16 02:03 68 06/28/16 01:45 97.9 73 18 152/70 99 06/28/16 01:00 96 21 06/28/16 00:46 80 16 159/62 99 Room Air 06/27/16 23:54 84 16 170/77 97 Room Air 06/27/16 22:35 90 166/73 99 Room Air 170/75 06/27/16 20:45 98.0 107 18 198/98 100 Physical Exam GENERAL: This is a pleasant well-nourished, well-developed patient, in no apparent distress. SKIN: No rashes, ecchymoses or lesions. Warm and dry. HEAD: Atraumatic. Normocephalic. EYES: No scleral icterus. No injection or drainage. NECK: Trachea midline. CARDIOVASCULAR:Normal rate and regular rhythm. 2/6 systolic murmur over the aortic region. RESPIRATORY: Clear to auscultation. Breath sounds equal bilaterally. No wheezes , rales, or rhonchi. GASTROINTESTINAL: Normoactive bowel sounds. Abdomen soft, non-tender, nondistended. MUSCULOSKELETAL: No lower extremity edema bilaterally. NEUROLOGICAL: Awake and alert. Motor grossly within normal limits. Normal speech. PSYCHIATRIC: Normal mood and affect. Laboratory Laboratory Tests Test 06/27/16 06/27/16 06/28/16 06/28/16 21:40 22:15 01:25 04:30 Urine Color YELLOW Urine Turbidity CLEAR Urine pH 6.0 Urine Specific Weare 1.005 Urine Protein NEG Urine Glucose (UA) NEG Urine Ketones NEG Urine Occult Blood NEG Urine Nitrite NEG Urine Bilirubin NEG Urine Leukocyte Esterase SMALL Urine WBC 3-5 Urine Squamous Epithelial 0-5 Cells Microscopic Urinalysis Comment CULT NOT INDICATED White Blood Count 9.1 Red Blood Count 3.80 Hemoglobin 11.6 Hematocrit 35.2 Mean Corpuscular Volume 92.7 Mean Corpuscular Hemoglobin 30.5 Mean Corpuscular Hemoglobin 32.9 Concent Red Cell Distribution Width 12.4 Platelet Count 221 Mean Platelet Volume 8.5 Neutrophils (%) (Auto) 73.7 Lymphocytes (%) (Auto) 17.5 Monocytes (%) (Auto) 7.4 Eosinophils (%) (Auto) 1.0 Basophils (%) (Auto) 0.4 Neutrophils # (Auto) 6.8 Lymphocytes # (Auto) 1.6 Monocytes # (Auto) 0.7 Eosinophils # (Auto) 0.1 Basophils # (Auto) 0.0 CBC Comment DIFF FINAL Differential Comment Prothrombin Time 10.0 Prothromb Time International 0.9 Ratio Activated Partial 24.7 Thromboplast Time D-Dimer Quantitative (PE/DVT) 0.61 Sodium Level 139 Potassium Level 3.4 Chloride Level 103 Carbon Dioxide Level 27.3 Anion Gap 9 Blood Urea Nitrogen 11 Creatinine 0.97 Estimat Glomerular Filtration 56 Rate Random Glucose 124 Calcium Level 8.5 Magnesium Level 2.2 Total Creatine Kinase 106 94 82 Creatine Kinase MB 1.9 Troponin I LESS THAN 0.02 LESS THAN 0.02 LESS THAN 0.02 Result Diagram: 06/27/16221406/27/162214 Imaging Last Impressions CT Angiography 06/27/168 Signed Impressions: Service Date/Time: Monday, June 27, 2016 23:33 - CONCLUSION: 1. No evidence of pulmonary embolism. 2. Mild atherosclerotic change in the aorta with no evidence of dissection. Rajesh Bailon MD Chest X-Ray 06/27/168 Signed Impressions: Service Date/Time: Monday, June 27, 2016 22:32 - CONCLUSION: No acute disease. Chon Astudillo MD Assessment and Plan Assessment and Plan 75 year old female with: Pain upper back: Pain between the shoulder blades, could be cardiac related. CTA shows mild atherosclerotic change in the aorta, but no PE or aortic dissection evident. Chest x-ray without acute disease. EKG #[address] depression, similar to 5/5 EKG. EKGs #2 and #3 with NSR and no evidence of ischemia. Received 2 doses of Nitro in ED. -Patient received 325 mg aspirin at 2200 last night. -Nitro SL prn chest pain -Patient to undergo nuclear stress test -Echo due to murmur on exam Hypertensive urgency: Highest BP of 198/98. Elevated but improved this morning. -Continue Lisinopril -Continue metoprolol qhs -Clonidine prn SBP >160 or DBP > 90 Faint systolic murmur in the aortic area -2-D echo to rule assess for Hypokalemia: Mild 3.4 last night. She did not receive supplementation in ED. -Repeat K+ level this morning 3.7. Chronic medical conditions include GERD, HLD: Continue home medications. Stop Macrobid for UTI as patient has completed treatment and new UA last night is without infection. DVT prevention: SCDs. Written by Bharti Prieto PA-C acting as scribe for Dr. Lee on 06/28/16 at 1045. ~1845: Echo still pending. I informed patient that she will not be discharged tonight. Upper back pain has eased up with Tylenol. Questions from patient and daughter at bedside were addressed. They are concerned about gallbladder issue but patient has no pain after eating. Patient denies fevers or vomiting although has been nauseous this afternoon. Denies regurgitation. Still admits to pressure over the lower abdomen, flatus, and malodorous urine, but abdomen is soft, non-tender, non-distended with normoactive bowel sounds in all 4 quadrants, negative Jose's test, and UA is clean. No tenderness over thoracic spine or left scapula. Only mildly tender over medial R scapula. Will reassess in the morning. Discussed Condition With Patient her family Bharti Prieto June 28, 2016 11:18 Patrick Lee MD June 28, 2016 14:19
[2016-06-28] MEDS ORDERED: cloNIDine HCL 0.1 MG TAB PO PRN (12:30)
[2016-06-28] MEDS ORDERED: PILL SPLITTER OTHER PRN (12:30)
[2016-06-28] MEDS ORDERED: NITROGLYCERIN 0.4 MG SL 25 TABS/BTL SL PRN (12:45)
[2016-06-28] MEDS: CHOLECALCIFEROL (VIT D3) 1000 UNIT TAB PO SCH (12:53)
[2016-06-28] MEDS: LISINOPRIL 10 MG TAB PO SCH (12:53)
[2016-06-28] MEDS ORDERED: REGADENOSON INJ 0.4 MG/5 ML SYR IV ONE (13:11)
[2016-06-28] MEDS ORDERED: ALPRAZolam 0.25 MG TAB PO PRN (14:30)
--- NOTE | 2016-06-28 14:36 | RADHPO ---
EXAM DATE/TIME: 06/28/2016 13:14 [place] COMPARISON: No previous studies available for comparison. INDICATIONS : Chest pain for 1 day. Abnormal EKG. DOSE: 35 mCi Tc99m Myoview at stress. 11 mCi Tc99m Myoview at rest. 0.4 mg Lexiscan STRESS SYMPTOMS: Short of breath, right arm pain, heart racing and flushed. EJECTION FRACTION: > 70% MEDICAL HISTORY : Hypertension. Hypercholesterolemia. SURGICAL HISTORY : Tubal ligation. Hysterectomy. ENCOUNTER: Initial ACUITY: 1 day PAIN SCALE: 3/10 LOCATION: Bilateral chest TECHNIQUE: The patient underwent pharmacologic stress with infusion of prescribed dose. Continuous ECG tracing was monitored during stress. Gated SPECT imaging was performed after stress and conventional SPECT i maging was performed at rest. The examination was performed on a SPECT/CT scanner, both attenuation and non-corrected datasets were reviewed. FINDINGS: DISTRIBUTION: The maximum perfused segment at stress is in the inferior wall. PERFUSION STUDY: The pattern of perfusion at stress is within normal limits. GATED STUDY: There is intact wall motion and thickening without hypokinetic or dyskinetic segments. CONCLUSION: 1. No reversible perfusion defect to indicate stress-induced myocardial ischemia identified. RISK CATEGORY: Low (<1% Annual Mortality Rate) Garret Rolon MD on June 28, 2016 at 14:33 Board Certified Radiologist. This report was verified electronically.
[2016-06-28] MEDS ORDERED: SODIUM CHLORIDE FLUSH PRN IV FLUSH (17:15)
--- NOTE | 2016-06-28 17:24 | EKG ---
Date Performed: 06/28/2016 Time Performed: 04:23:16 PTAGE: 75 years EKG: Sinus rhythm Normal ECG Since PREVIOUS TRACING , no significant change noted PREVIOUS TRACIN06/28/2016 01.26 DOCTOR: Jenny Deluca Interpretating Date/Time 06/28/2016 17:23:36
--- NOTE | 2016-06-28 17:25 | EKG ---
Date Performed: 06/28/2016 Time Performed: 01:26:24 PTAGE: 75 years EKG: Sinus rhythm Normal ECG PREVIOUS TRACING : 06/27/2016 22.08 Since previous tracing, no significant change noted DOCTOR: Jenny Deluca Interpretating Date/Time 06/28/2016 17:24:25
--- NOTE | 2016-06-28 17:26 | EKG ---
Date Performed: 06/27/2016 Time Performed: 22:08:42 PTAGE: 75 years EKG: Sinus rhythm Lateral ST-T changes are nonspecific Borderline ECG PREVIOUS TRACING : 06/17/2016 12.18 Since previous tracing, no significant change noted DOCTOR: Jenny Deluca Interpretating Date/Time 06/28/2016 17:25:48
[2016-06-28] MEDS ORDERED: ONDANSETRON HCL 4 MG/2 ML VIAL IV PRN (18:15)
[2016-06-28] MEDS ORDERED: ACETAMINOPHEN 325 MG TAB PO PRN (18:15)
[2016-06-28] MEDS ORDERED: METOPROLOL SUCCINATE 25 MG EXTENDED RELEASE TAB PO SCH (21:00)
[2016-06-28] MEDS ORDERED: PANTOPRAZOLE SOD 40 MG DELAYED RELEASE TAB PO SCH (21:00)
[2016-06-28] MEDS ORDERED: PRAVASTATIN SOD 40 MG TAB PO SCH (21:00)
[2016-06-28] MEDS: SODIUM CHLORIDE FLUSH BID IV FLUSH SCH (22:20)
[2016-06-29] VITALS: BP 132/73; PULSE 73; RESP 20; TEMP 98.6; O2SAT 97
[2016-06-29 08:48] VITALS: BP 138/72; PULSE 74; RESP 18; TEMP 96.9; O2SAT 95
[2016-06-29 10:00] VITALS: PULSE 74
[2016-06-29] MEDS: CHOLECALCIFEROL (VIT D3) 1000 UNIT TAB PO SCH (10:14)
[2016-06-29] MEDS: LISINOPRIL 10 MG TAB PO SCH (10:14)
[2016-06-29] MEDS: SODIUM CHLORIDE FLUSH BID IV FLUSH SCH (10:14)
[2016-06-29] MEDS ORDERED: CETIRIZINE HCL 10 MG TAB PO ONE (12:00)
[2016-06-29 12:57] VITALS: BP 142/75; PULSE 81; RESP 18; TEMP 97.8; O2SAT 99
--- NOTE | 2016-06-29 14:37 | HHI.DS ---
Discharge Summary Admission Date June 28, 2016 at 00:32 Discharge Date: June 29, 2016 Admitting Diagnosis chest pain (1) Pain, upper back ICD Code: M54.9 Diagnosis: Principal (2) Hypertensive urgency ICD Code: I16.0 Diagnosis: Principal (3) Hypokalemia ICD Code: E87.6 Diagnosis: Principal Procedures none Brief History - From Admission 75-year-old female with history of hypertension, hyperlipidemia, GERD , anxiety presents with complaint of pain between her shoulder blades. Patient states she had some of this pain 1.5 weeks ago over the left shoulder blade but the pain became worse yesterday. She denies any relief with pain medications. States her pain at worst is a 10/10. She currently describes the pain as a pressure in her back. She denies any chest pain. She denies pain being worse with movement or breathing. She does admit to radiation of pain to her neck. Denies any radiation of pain to the arms. She did have some nausea but denies any vomiting. Denies any dizziness or lightheadedness, syncope, diaphoresis, or shortness of breath. Denies any abdominal pain, diarrhea, or constipation. Patient denies any dysuria but does admit to feeling of pressure over her lower abdomen. She was recently seen in the ED on 06/17/16 and was prescribed Macrobid for UTI. Patient additionally states she hasn't been able to eat much for the past 2 months but denies any night sweats or weight loss. She denies any personal history of [place] or CVA. Had a stress test 2-3 years ago in [place], [place]. CBC/BMP: 06/27/16 2215 06/28/16 0430 Significant Findings Laboratory Tests Test 06/27/16 06/27/16 06/28/16 06/28/16 21:40 22:15 01:25 04:30 Urine Leukocyte Esterase SMALL (NEG) Red Blood Count 3.80 MIL/MM3 (4.00-5.30) Neutrophils (%) (Auto) 73.7 % (16.0-70.0) D-Dimer Quantitative (PE/DVT) 0.61 MG/L FEU (0.00-0.50) Potassium Level 3.4 MEQ/L (3.5-5.1) Estimat Glomerular Filtration 56 ML/MIN (>89) Rate Random Glucose 124 MG/DL (74-106) Troponin I LESS THAN 0.02 LESS THAN 0.02 LESS THAN 0.02 NG/ML NG/ML NG/ML (0.02-0.05) (0.02-0.05) (0.02-0.05) Imaging Last Impressions Myocardial Perfusion Scan Nuc Med 06/28/16 0000 Signed Impressions: Service Date/Time: Tuesday, June 28, 2016 13:14 - CONCLUSION: 1. No reversible perfusion defect to indicate stress-induced myocardial ischemia identified. RISK CATEGORY: Low (<1%% Annual Mortality Rate) Garret Rolon MD CT Angiography 06/27/16 2408 Signed Impressions: Service Date/Time: Monday, June 27, 2016 23:33 - CONCLUSION: 1. No evidence of pulmonary embolism. 2. Mild atherosclerotic change in the aorta with no evidence of dissection. Rajesh Bailon MD Chest X-Ray 06/27/16 3251 Signed Impressions: Service Date/Time: Monday, June 27, 2016 22:32 - CONCLUSION: No acute disease. Chon Astudillo MD PE at Discharge GENERAL: NAD, A&Ox3 SKIN: Warm and dry. HEAD: Normocephalic. EYES: No scleral icterus. No injection or drainage. NECK: Supple, trachea midline. No JVD or lymphadenopathy. CARDIOVASCULAR: Regular rate and rhythm without murmurs, gallops, or rubs. RESPIRATORY: Breath sounds equal bilaterally. No accessory muscle use. GASTROINTESTINAL: Abdomen soft, non-tender, nondistended. MUSCULOSKELETAL: No cyanosis, or edema. BACK: Nontender without obvious deformity. No CVA tenderness. Hospital Course Mrs. Bennett is a 75 year old female. She was admitted for a chest pain work up. Cardiac enzymes remained unelevated, a stress test was benign. 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 Echocardiogram is pending, but patient would like to leave. The test is completed and I will call the report to her when it is available. No other complaints. Medically stable for discharge to home. Pt Condition on Discharge: Stable Discharge Disposition: Discharge Home Discharge Time: <= 30 minutes Discharge Instructions DIET: Follow Instructions for: As Tolerated, No Restrictions Activities you can perform: Regular-No Restrictions Follow up Referrals: PCP Follow-up - 2 Weeks Continued Medications: Alprazolam (Xanax) 0.25 Mg Tab 0.25 MG PO Q8H PRN ANXIETY Ref 0 TAB Cholecalciferol (Vitamin D) 1,000 Unit Tab 1000 UNITS PO DAILY Nutritional Supplement #1 Ref 0 BOTTLE Fexofenadine (Rayna Allergy) 180 Mg Tab 180 MG PO DAILY Allergy Management #30 Ref 0 TAB Fluticasone Nasal [place] (Flonase Nasal [place]) 50 Mcg/Act [place] 50 MCG EACH NARE DAILY Allergies #1 Ref 0 BOTTLE Lansoprazole (Prevacid) 30 Mg Capdr 30 MG PO HS Ref 0 CAP Lisinopril (Lisinopril) 10 Mg Tab 10 MG PO DAILY #30 Ref 0 TAB Metoprolol Succinate ER 24 HR (Metoprolol Succinate ER 24 HR) 25 Mg Tab 12.5 MG PO HS #30 Ref 0 TAB Pravastatin (Pravastatin) 40 Mg Tab 40 MG PO HS Cholesterol Management #30 Ref 0 TAB Tramadol (Tramadol) 50 Mg Tab 50 MG PO Q6H PRN PAIN Ref 0 TAB Discontinued Medications: Nitrofurantoin Monohydrate Macrocrystals (Macrobid) 100 Mg Cap 100 MG PO BID Infection Days 10 Ref 0 CAP Garret Roper MD June 29, 2016 14:37
--- NOTE | 2016-06-30 12:37 | TR ---
Date Performed: 06/28/2016 Time Performed: 13:37:15 DOCTOR: Gonzalez Rodriguez DRUG LIST: CLINICAL HISTORY: CHEST PAIN REASON FOR TEST: Chest pain REASON FOR ENDING: OBSERVATION: CONCLUSION: Lexiscan stress test was performed under standard four minute protocol. Radionuclid e was injected one minute prior to ending the test. No electrocardiographic abormalities were present to suggest ischemia. Nuclear imaging and interpretation are pending. COMMENTS:
--- NOTE | 2016-07-02 19:28 | EC ---
Study Study Date:06/28/2016 STUDY CONCLUSIONS SUMMARY LEFT VENTRICLE: The cavity size was normal. Wall thickness was increased in a pattern of mild LVH. Systolic function was normal. The estimated ejection fraction was in the range of 55% to 60%. Wall motion was normal; there were no regional wall motion abnormalities. If LV function is below 40, please consider prescribing an ACEI or ARB or document rationale for non-use. PROCEDURE DATA STUDY STATUS: Elective. Procedure: Transthoracic echocardiography. Image quality was good. Scanning was performed from the parasternal, apical, and subcostal acoustic windows. Study completion: The patient tolerated the procedure well. Transthoracic echocardiography. M-mode, complete 2D, and complete spectral Doppler. Height: Height: 66in. Weight: Weight: 271.4lb. Body mass index: BMI: 43.9kg/m^2. Body surface area: BSA: 2.28m^2. Patient status: Inpatient. CARDIAC ANATOMY LEFT VENTRICLE: The cavity size was normal. Wall thickness was increased in a pattern of mild LVH. Systolic function was normal. The estimated ejection fraction was in the range of 55% to 60%. Wall motion was normal; there were no regional wall motion abnormalities. AORTIC VALVE: Trileaflet; normal thickness, mildly calcified leaflets. Doppler: Transvalvular velocity was within the normal range. There was no stenosis. No regurgitation. Mean gradient: 8mm Hg (S). Peak gradient: 15mm Hg (S). AORTA: Aortic root: The aortic root was normal in size. MITRAL VALVE: Structurally normal valve. Doppler: Transvalvular velocity was within the normal range. There was no evidence for stenosis. No regurgitation. Mean gradient: 2mm Hg (D). Peak gradient: 3mm Hg (D). LEFT ATRIUM: The atrium was normal in size. RIGHT VENTRICLE: The cavity size was normal. Wall thickness was normal. PULMONIC VALVE: Doppler: Transvalvular velocity was within the normal range. There was no evidence for stenosis. No regurgitation. TRICUSPID VALVE: Structurally normal valve. Doppler: Transvalvular velocity was within the normal range. No regurgitation. PULMONARY ARTERY: The main pulmonary artery was normal-sized. Systolic pressure was within the normal range. RIGHT ATRIUM: The atrium was normal in size. PERICARDIUM: There was no pericardial effusion. SYSTEMIC VEINS: Inferior vena cava: The vessel was normal in size. Patient weight: 271.4lb _Ejection fraction:_ 65-75% _Fractional shortening:_ 32% up to 5Kg 5-11.5Kg 11.6-22.9Kg 23-45Kg 45-57Kg Aortic Root 7-13 <17 13-22 17-27 17-27 LA diam 6-13 <23 24-38 33-47 37-40 RVID 10-17 7-15 7-15 7-18 8-17 LVIDd 12-22 <32 24-38 33-47 37-40 LVPW 2-4 3-6 5-7 6-8 7-8 IVS 2-4 3-6 5-7 6-8 7-8 BASIC MEASUREMENTS ADULT Normal Left ventricle LV internal dimension, ED, chordal level, *32.6 mm 43-52 PLAX LV internal dimension, ES, chordal level, *22.5 mm 23-38 PLAX Fractional shortening, chordal level, PLAX 31 % >29 LV posterior wall thickness, ED 11.5 mm IVS/LVPW ratio, ED 1.02 <1.3 Ventricular septum Septal thickness, ED 11.7 mm Aorta Root diameter, ED 25 mm Left atrium Anterior-posterior dimension 30 mm Anterior-posterior dimension index 1.32 cm/m^2 <2.2 DOPPLER MEASUREMENTS ADULT Normal Aortic valve Peak velocity, S 196 cm/s Mean velocity, S 131 cm/s VTI, S 21.6 cm Mean gradient, S 8 mm Hg Peak gradient, S 15 mm Hg Mitral valve Mean velocity, D 60.3 cm/s Mean gradient, D 2 mm Hg Peak gradient, D 3 mm Hg LEGEND: Mean values are shown as u=mean value. Asterisk (*) leonard values outside specified normal range. Prepared and signed by Jenny Deluca [id number]
== END 2016-06-29 15:36 | disposition home or self-care (01) ==
LOC: PHED 20:38 → PHEDA 06-28 00:32 → PH3B 06-28 01:43
PROVIDERS: ADMIT Hospitalist; ATTEND Hospitalist
DX: M54.9 Dorsalgia, unspecified (principal); R07.89 Other chest pain; M25.512 Pain in left shoulder; I16.0 Hypertensive urgency; E87.6 Hypokalemia; K21.9 Gastro-esophageal reflux disease without esophagitis; E78.5 Hyperlipidemia, unspecified; F41.9 Anxiety disorder, unspecified; E78.00 Pure hypercholesterolemia, unspecified; Z82.49 Family history of ischemic heart disease and other diseases of the circulatory system; Z87.440 Personal history of urinary (tract) infections
CPT/HCPCS: 71010; 71275; 78452; 80048; 81001; 82550; 82552; 83735; 84132; 84484; 85025; 85379; 85610; 85730; 93005; 93017; 93308; 99285; A9502; G0378; J2405; J2785; Q9967